=== PATIENT | female | born 1950 | race Caucasian/White ===

== ENCOUNTER 2023-12-01 12:19 | Outpatient (CLI) | payer MEDICARE, BC | END 2023-12-01 23:59 | disposition EMS.NT | LOC: EMS 12:19 | DX: S51.851A Open bite of right forearm, initial encounter (principal); W54.0XXA Bitten by dog, initial encounter; Y93.01 Activity, walking, marching and hiking ==

== ENCOUNTER 2023-12-01 13:33 | Emergency (ER) | payer MEDICARE, BC ==
--- NOTE | 2023-12-01 14:59 | ED Physician Documentation ---
History of Present Illness - Stated complaint Stated Complaint: FT ARM DOG BITE - Chief complaint Chief Complaint: Wound - History obtained from History obtained from: Patient, Family, Friend - History of Present Illness Timing: Prior to arrival - Additonal information Additional information: Patient is a 73-year-old female presenting to the emergency department with right forearm bite. Patient around 1200 was attacked by a dog. The dog bit her right forearm. She sustained a puncture wound patient had police involved and was wrapped by EMS. Patient unsure of rabies vaccination status of the dog but they are following up with police and is agreeable to holding off on rabies vaccine at this time. Patient's last tetanus was in 2021. She denies any num bness or tingling only pain to right forearm no weakness to right arm. PD PAST MEDICAL HISTORY - Past Medical History Past Medical History: Yes Psych: Depression Other Past Medical History: stage 4 cancer, renal cancer - Past Surgical History Ortho: Other - Present Medications Home Medications: Ambulatory Orders Medication Instructions Recorded Confirmed Amox/Clav 875/125 [Augmentin] 1 each PO Q12H #20 tablet 12/01/23 - Allergies Allergies/Adverse Reactions: Allergies Allergy/AdvReac Type Severity Reaction Status Date / Time No Known Drug Allergies Allergy Verified 12/01/23 13:46 - Social History Does the pt smoke?: No Smoking Status: Never smoker Does the pt drink ETOH?: No Does the pt have substance abuse?: No - Immunizations Immunizations are current?: Yes PD ED PE NORMAL - Vitals Vital signs reviewed: Yes - General General: Alert and oriented X 3 - HEENT HEENT: Atraumatic - Neck Neck: Supple, no meningeal sign - Cardiac Cardiac: RRR, No murmur, No gallop, No rub - Respiratory Respiratory: No respiratory distress - Abdomen Abdomen: Normal bowel sounds - Derm Derm: Normal color - Extremities Extremities: Other (Patient sustained puncture wound and abrasion to right dorsal forearm. Patient has no active bleeding on arrival wound was wrapped by ENT wrapping removed and) - Free text exam Free text exam: Strength intact in distal digits of right hand 1 through 5 pain with movement but strength equal bilaterally 5 out of 5. Full sensation intact to digits 1 through 5 distally full range of motion and strength in right wrist. No obvious foreign bodies on physical exam of wound. No significant contamination Results - Vitals Vitals: Vital Signs - 24 hr 12/01/23 13:42 Temperature 36.5 C Heart Rate 73 Respiratory 16 Rate Blood Pressure 125/77 O2 Saturation 99 PD Medical Decision Making - ED course Complexity details: re-evaluated patient ED course: Patient is a 73-year-old female presenting to the emergency department with a dog bite to right forearm. Patient injury occurred around 12:00 police were involved and she reported it to them unsure of rabies status of dog but patient is up-to-date on her tetanus. Discussed with patient she is willing to wait for rabies vaccine as she is 70. Prior to starting rabies vaccine police are involved and will determine status of vaccination of the dog. Vital stable on arrival physical exam shows abrasion with small puncture wound to right forearm. No active bleeding no significant contamination on arrival. Strength intact in digits 1 through 5 full range of motion and strength intact to right wrist. Wound was cleaned thoroughly here in the emergency department. No signs of foreign body on cleaning no significant depth to wound we will hold off on any further imaging at this time. Patient neurovascularly intact right hand will wrap with Coban and Telfa instructed patient to bring back in 12 hours will start patient on Augmentin for dog bite wound. Instructed patient to watch for any redness swelling warmth fevers discharge numbness tingling or weakness to right hand. She is agreeable with this plan will follow-up with PCP early next week for wound reevaluation. Departure - Departure Disposition: 01 Home, Self Care Clinical Impression: Animal bite with open wound Condition: Good Instructions: Bites Scratches Animal Prescriptions: Amox/Clav 875/125 [Augmentin] 1 each PO Q12H #20 tablet Comments: Rewrap wound in 12 hours watch for any redness swelling warmth fevers or discharge if dog has been unvaccinated you will require rabies vaccine follow-up with your PCP for wound recheck in 1 week have started you on antibiotics please take as prescribed return with any numbness tingling redness swelling fevers or discharge these are signs of infected wound. Forms: PCP List
[2023-12-01 15:34] VITALS: BP 125/68; O2SAT 96
== END 2023-12-01 15:18 | disposition home or self-care (01) ==
LOC: ED 13:33
DX: S51.851A Open bite of right forearm, initial encounter (principal); W54.0XXA Bitten by dog, initial encounter
CPT/HCPCS: 99282; 99283